=== PATIENT | male | born 1960 | race African-American/Black ===

== ENCOUNTER 2023-01-03 00:09 | Emergency (ER) | payer OTHER ==
[2023-01-03 00:35] VITALS: BP 152/86; PULSE 88; RESP 18; TEMP 98.2; BMI 28.3
[2023-01-03] MEDS ORDERED: diphenhydrAMINE HCL 25 MG CAPSULE (FP) PO ONE ×2 (01:31→01:33)
[2023-01-03] MEDS ORDERED: DALBAVANCIN HCL 1,500 MG in DEXTROSE 5%-WATER - 500 ML IVPB ONE (02:17)
[2023-01-03] MEDS ORDERED: DALBAVANCIN HCL 500 MG VIAL (RESTRICTED TO ID ONLY) IVPB ONE (02:23)
[2023-01-03 02:31] LABS: BASO % 0.9 % (0-2.0); EOS % 5.6 % (0-4.5); HEMATOCRIT 40.4 % (35.4-49); LYMPH % 37.4 % (8-40); MCH 30.4 pg (25.7-33.7); MCHC 34.7 g/dl (32.0-35.9); MEAN CELL VOLUME 87.6 fl (80-96); MEAN PLT VOLUME 9.5 fl (7.5-11.1); MONO % 6.8 % (3.8-10.2); NEUT % 49.3 % (42.8-82.8); PLATELET COUNT 195 10^3/uL (134-434); RBC 4.61 M/mm3 (4.00-5.60); WHITE BLOOD COUNT 5.1 K/mm3 (4.0-10.0)
[2023-01-03 02:52] LABS: CALCIUM 9.4 mg/dL (8.5-10.1)
[2023-01-03 02:53] LABS: ALBUMIN 3.8 g/dl (3.4-5.0); BLOOD UREA NITROGEN 18.7 mg/dL (7-18)
[2023-01-03 02:56] LABS: CREATININE 1.6 mg/dL (0.55-1.3)
[2023-01-03 02:58] LABS: BILIRUBIN,TOTAL 0.2 mg/dL (0.2-1); TOT PROT 7.5 g/dl (6.4-8.2)
[2023-01-03 03:10] LABS: ERYTHROCYTE SEDIMENTATION RATE 16 mm/hr (0-20)
[2023-01-03] MEDS ORDERED: SODIUM CHLORIDE 0.9% 500 ML INFUS.BAG IV ONE (03:16)
== END 2023-01-03 04:12 | disposition home or self-care (01) ==
LOC: JER 00:09
DX: R21 Rash and other nonspecific skin eruption (principal); L40.9 Psoriasis, unspecified; L74.513 Primary focal hyperhidrosis, soles; B34.9 Viral infection, unspecified
CPT/HCPCS: 36415; 80053; 85025; 85651; 86140; 99284-25; J0875